=== PATIENT | female | born 1990 | race Caucasian/White ===

== ENCOUNTER 2018-07-27 01:15 | Emergency (ER) | payer MEDICAID ==
[~2018-07-27] VITALS: Ht 162.6 cm; Wt 111.3 kg
[2018-07-27 01:21] VITALS: BP 126/79
[2018-07-27] MEDS ORDERED: AMOX500C2 PO (01:34)
[2018-07-27] MEDS ORDERED: HYDR-4383 PO (01:34)
[2018-07-27] MEDS ORDERED: ibuprofen tablet 400 MG TABLET PO ONE (01:35)
[2018-07-27] MEDS ORDERED: amoxicillin 250mg capsule PO ONE (01:35)
== END 2018-07-27 01:42 | disposition home or self-care (01) ==
LOC: ER 01:18
DX: K08.89 Other specified disorders of teeth and supporting structures (principal); Z79.2 Long term (current) use of antibiotics; Z79.899 Other long term (current) drug therapy
CPT/HCPCS: 99283

== ENCOUNTER 2018-11-05 05:53 | Emergency (ER) | payer MEDICAID ==
[~2018-11-05] VITALS: Ht 160 cm; Wt 120.0 kg
[~2018-11-05 05:53] MED LIST: HYDR-4383 PO
[2018-11-05 05:59] VITALS: BP 133/94
== END 2018-11-05 09:52 | disposition home or self-care (01) ==
LOC: ER 05:54
DX: S62.102A Fracture of unspecified carpal bone, left wrist, initial encounter for closed fracture (principal); F17.210 Nicotine dependence, cigarettes, uncomplicated; Z88.6 Allergy status to analgesic agent; W19.XXXA Unspecified fall, initial encounter; Y93.89 Activity, other specified; Y92.89 Other specified places as the place of occurrence of the external cause; Y99.9 Unspecified external cause status
CPT/HCPCS: 73100; 99284